=== PATIENT | female | born 1945 | race Caucasian/White ===

== ENCOUNTER 2017-07-31 21:38 | Observation (INO) | payer MEDICARE, BC ==
--- NOTE | 2017-07-31 22:24 | RAD ---
EXAM DESCRIPTION: Chest,1 View CLINICAL HISTORY:72 years Female, generalized weakness Comparison: None FINDINGS: No focal lung consolidation. No pleural effusion. No pneumothorax. Cardiac and mediastinal silhouette is unremarkable. No acute osseous abnormality. Soft tissues are unremarkable. IMPRESSION: No acute findings. No focal lung consolidation. Electronically signed by: Larry Quinteros MD 07/31/2017 10:23 PM CDT
[2017-07-31] MEDS ORDERED: SODIUM CHLORIDE 0.9% 1000ML 1,000 ML IVS ONE (22:41)
[2017-07-31] MEDS ORDERED: cefTRIAXone SODIUM 1 GM in SODIUM CHL 0.9% 50ML MIN-BAG+ 50 ML IVPB ONE (22:55)
[2017-07-31] MEDS ORDERED: MAGNESIUM SULFATE PREMIX 2GM 2 GM in PREMIX BAG 1 BAG IVPB ONE (22:55)
--- NOTE | 2017-07-31 23:02 | ED.PDOC ---
History of Present Illness - General Chief Complaint: General Stated Complaint: weakness, achy 2 weeks Time Seen by Provider: 07/31/17 21:49 Source: patient Exam Limitations: no limitations - History of Present Illness Initial Comments: the patient is a 72-year-old female presenting to the emergency room after a fall at home where she says she just felt weak and fell and was unable to get up. She is not really feeling dizzy. She did not hurt herself with a fall. She reports that over the last 2 weeks she has been getting progressively weaker. She is significantly overweight. She does help take care of her elderly mother. She does obviously have some very significant depression that is not being treated. She is still positive on vital signs here. She only takes a diuretic and a blood pressure pill. No strokelike symptoms. No headache. No shortness of breath. No chest pain. She does appear significantly deconditioned. Timing/Duration: unsure Severity: moderate Improving Factors: nothing Worsening Factors: nothing Associated Symptoms: weakness Allergies/Adverse Reactions: Allergies Codeine Adverse Reaction (Verified 07/31/17 21:52) Home Medications: Ambulatory Orders Carvedilol [Coreg] 6.25 mg PO BID 07/31/17 Hctz 25 mg/Triamterene 37.5 mg [Dyazide-25] 1 ea PO BID 07/31/17 Review of Systems - Review of Systems Constitutional: States: malaise, weakness - generalized but no focal EENTM: States: no symptoms reported Respiratory: States: short of breath - ith exertion primarily Cardiology: States: no symptoms reported Gastrointestinal/Abdominal: States: no symptoms reported Genitourinary: States: no symptoms reported Musculoskeletal: States: no symptoms reported Skin: States: no symptoms reported Neurological: States: anxiety, depressed Endocrine: States: no symptoms reported All other Systems: No Change from Baseline Past Medical History (General) - Patient Medical History Hx Congestive Heart Failure: No Hx Hypertension: Yes Hx Diabetes: No - Vaccination History Hx Influenza Vaccination: Yes Hx Pneumococcal Vaccination: Yes - Female History Patient is a Female of Child Bearing Age (10 -59 yrs old): No - Triage Comment ED Triage Comment: Feeling weak, shaky for 2 weeks, taking tylenol for aches and shakiness for past 2 weeks Family Medical History - Family History Father Family History: Unknown Physical Exam - Physical Exam General Appearance: Alert, Anxious Ears, Nose, Throat: hearing grossly normal, normal ENT inspection, normal pharynx Neck: full range of motion, supple Respiratory: lungs clear, normal breath sounds, no respiratory distress, no accessory muscle use Cardiovascular/Chest: normal peripheral pulses, regular rate, rhythm, no edema Peripheral Pulses: radial,right: 2+, radial,left: 2+, dorsalis pedis,right: 2+, dorsalis pedis,left: 2+ Gastrointestinal/Abdominal: non tender, soft Rectal Exam: deferred Back Exam: no CVA tenderness, no vertebral tenderness - obese Extremity: normal range of motion, non-tender, normal inspection, no pedal edema , normal capillary refill Neurologic: conductor sleeping car II-XII nml as tested, alert, oriented x 3, other - the patient' s strength does appear to be preserved, gross motor exam however she does havesome weakness when it comes to bearing her full weight. She is markedly depressed Skin Exam: normal color Comments: Vital Signs - 24 hr 07/31/17 07/31/17 07/31/17 21:48 21:54 22:45 Temperature 98.6 F Pulse Rate [ 94 H 94 H 83 Right] Respiratory 18 Rate Blood Pressure 130/83 112/73 [Left Radial Artery] O2 Sat by Pulse 95 Oximetry 07/31/17 07/31/17 22:46 22:47 Temperature Pulse Rate [ 103 H 111 H Right] Respiratory Rate Blood Pressure 114/84 113/49 [Left Radial Artery] O2 Sat by Pulse Oximetry Progress - Progress Progress: 07/31/17 23:03 the patient is a 72-year-old female presenting to the emergency room after a fall and progressive weakness over the last couple of weeks. The patient does have significant orthostasis that appears to be due to dehydration likely from her diuretic. The patient is receiving a fluid bolus. Initially she does have a urinary tract infection and is receiving a dose of Rocephin. She also has hypomagnesemia and is receiving a dose of this as well. The patient obviously has significant depression that will need to be treated in the long run. Additionally her white blood cell count differential does raise the possibility of a early blood dyscrasia. This may warrant a peripheral blood smear at a later date once her infection is cleared. Admit for further management. She may need physical therapy in the near future. - Results/Orders Results/Orders: Abnormal Lab Results 07/31/17 07/31/17 07/31/17 22:08 22:08 22:21 WBC 10.9 H RDW 15.3 H Band Neutrophils 4.0 H Metamyelocytes 4.0 H Sodium 134 L Chloride 98 L BUN 21 H BUN/Creatinine Ratio 25.6 H Random Glucose 120 H Serum Osmolality 272.4 L Magnesium 1.7 L Creatine Kinase 16 L B-Natriuretic Peptide 148.0 H Albumin 2.6 L Globulin 4.3 H Albumin/Globulin Ratio 0.6 L Urine Blood Moderate H Urine Nitrite Positive H Ur Leukocyte Esterase Small H Urine RBC 5-10 H Urine WBC 20-30 H Urine Bacteria 4+ H Laboratory Tests 07/31/17 07/31/17 07/31/17 22:08 22:08 22:08 WBC 10.9 H RBC 4.57 Hgb 13.0 Hct 39.4 MCV 86.1 MCH 28.4 MCHC 33.0 RDW 15.3 H Plt Count 279 MPV 7.8 Absolute Neuts (auto) Not Reportable Absolute Lymphs (auto) Not Reportable Absolute Monos (auto) Not Reportable Absolute Eos (auto) Not Reportable Neutrophils % Not Reportable Neutrophils % (Manual) 70.0 Lymphocytes % Not Reportable Lymphocytes % (Manual) 20.0 Monocytes % Not Reportable Monocytes % (Manual) 2.0 Eosinophils % Not Reportable Basophils % Not Reportable Band Neutrophils 4.0 H Metamyelocytes 4.0 H Platelet Estimate Normal Anisocytosis 1+ Sodium 134 L Potassium 4.0 Chloride 98 L Carbon Dioxide 27 Anion Gap 13.0 BUN 21 H Creatinine 0.82 BUN/Creatinine Ratio 25.6 H Random Glucose 120 H Serum Osmolality 272.4 L Lactic Acid 0.8 Calcium 9.5 Magnesium 1.7 L Total Bilirubin 0.5 AST 16 ALT 28 Alkaline Phosphatase 84 Creatine Kinase 16 L CK-MB (CK-2) 1.2 CK-MB (CK-2) % Not Reportable Troponin I 0.02 B-Natriuretic Peptide 148.0 H Serum Total Protein 6.9 Albumin 2.6 L Globulin 4.3 H Albumin/Globulin Ratio 0.6 L Urine Color Urine Appearance Urine pH Ur Specific [place] Urine Protein Urine Glucose (UA) Urine Ketones Urine Blood Urine Nitrite Urine Bilirubin Urine Urobilinogen Ur Leukocyte Esterase Urine RBC Urine WBC Ur Epithelial Cells Urine Bacteria 07/31/17 22:21 WBC RBC Hgb Hct MCV MCH MCHC RDW Plt Count MPV Absolute Neuts (auto) Absolute Lymphs (auto) Absolute Monos (auto) Absolute Eos (auto) Neutrophils % Neutrophils % (Manual) Lymphocytes % Lymphocytes % (Manual) Monocytes % Monocytes % (Manual) Eosinophils % Basophils % Band Neutrophils Metamyelocytes Platelet Estimate Anisocytosis Sodium Potassium Chloride Carbon Dioxide Anion Gap BUN Creatinine BUN/Creatinine Ratio Random Glucose Serum Osmolality Lactic Acid Calcium Magnesium Total Bilirubin AST ALT Alkaline Phosphatase Creatine Kinase CK-MB (CK-2) CK-MB (CK-2) % Troponin I B-Natriuretic Peptide Serum Total Protein Albumin Globulin Albumin/Globulin Ratio Urine Color Yellow Urine Appearance Sl cloudy Urine pH 6.0 Ur Specific [place] 1.015 Urine Protein Trace Urine Glucose (UA) Negative Urine Ketones Negative Urine Blood Moderate H Urine Nitrite Positive H Urine Bilirubin Negative Urine Urobilinogen 0.2 Ur Leukocyte Esterase Small H Urine RBC 5-10 H Urine WBC 20-30 H Ur Epithelial Cells 0 Urine Bacteria 4+ H EKG shows normal sinus rhythm. No acute ST segment changes concerning for ischemia. Departure - Departure Clinical Impression: Orthostasis, Dehydration, Cystitis, Hypomagnesemia, Inability to perform activities of daily living Disposition: Admit Patient Home Medications: Ambulatory Orders Carvedilol [Coreg] 6.25 mg PO BID 07/31/17 Hctz 25 mg/Triamterene 37.5 mg [Dyazide-25] 1 ea PO BID 07/31/17 Decision To Admit - Decistion To Admit Decision to Admit Reason: Medical Nature Decision to Admit Date: 07/31/17 Decision to Admit Time: 23:05
[2017-07-31] MEDS ORDERED: cefTRIAXone SODIUM 1 GM VIAL ONE (23:07)
[2017-07-31] MEDS ORDERED: SODIUM CHL 0.9% 50ML MIN-BAG+ 50 ML IVPB ONE (23:07)
[2017-07-31] MEDS ORDERED: MAGNESIUM SULFATE PREMIX 2GM 50 ML IVPB ONE (23:07)
[2017-07-31] MEDS ORDERED: ACETAMINOPHEN 325 MG TAB PO ONE (23:49)
--- NOTE | 2017-07-31 23:53 | HP ---
SUPERVISING PHYSICIAN: Navjot Rich M.D. CHIEF COMPLAINT: Weakness and near syncopal episode. HISTORY OF PRESENT ILLNESS: This is a 72 year-old female patient who usually lives in [place], [place], but she has been staying here in [place] taking care of her elderly mother. Her elderly mother has had many health complications over the last few months. About 2 weeks ago she started feeling achy all over. She would wake up at night with difficulty sleeping. She has had some chills at some point but she did not feel like she had had any fever. On Monday, she felt better than she had the previous 2 weeks, but then Monday she really felt poorly. She forgot that Monday was so she called her primary care physician, Dr. Toribio. Because Dr. Toribio's office was not open, she initially was going to wait until today to call him, but she tried to get up and she had a very difficult time ambulating. In fact, she sort of fell against the wall and she was so weak she had a weak episode where she fell against the wall and she slid to the floor. She could not get up, so she ended up calling 911. She presented to the Emergency Room and in the Emergency Room she had orthostatic hypotension. She was given some fluids. Lab was drawn. WBCs were elevated at 10.9 and she had 4% bands. Sodium 134, potassium 4, chloride 98, BUN 21, creatinine 0.82, glucose 120, serum osmolality 272.4, magnesium 1.7. BNP was 148. TSH 1.04. Urinalysis was positive for a urinary tract infection. She had moderate urine blood, positive urine nitrites, small amount of leukocyte esterase, 5 to 10 urine RBCs, 20 to 30 urine WBCs and 4+ urine bacteria. Urine culture was done and she was started on Rocephin. Her initial pulse rate was 90s to 100s. After she received fluids, she dropped to the 80s. Her blood pressure normalized out to the 110s. I was called for admission to the hospital. PAST MEDICAL HISTORY: 1. Hypertension. 2. Osteoarthritis. 3. Obesity. PAST SURGICAL HISTORY: 1. Colon resection. 2. section times three. 3. Hysterectomy. OUTPATIENT MEDICATIONS: Per the EMR and awaiting verification. ALLERGIES: CODEINE SULFATE. SOCIAL HISTORY: She has been living in [place] for the past several months but normally lives in [place]. She has been taking care of her elderly mother. She has 3 children. She denies any tobacco use. She drinks alcohol very infrequently. Denies any illicit drug use. REVIEW OF SYSTEMS: GENERAL: Positive for fatigue. Negative for fever or weight changes. HEENT: Negative for sinus symptoms, ear pain, vision changes or sore throat. RESPIRATORY: Positive for mild dyspnea with exertion. Negative for coughing or wheezing. CARDIAC: Negative for chest pain, palpitations, tachycardia. GASTROINTESTINAL: Negative for nausea, vomiting, diarrhea or constipation. GENITOURINARY: Negative for hematuria, dysuria or polyuria. MUSCULOSKELETAL: Negative for back pain, arthralgias or myalgias. NEUROLOGIC: Positive for anxiety and depression as well as weakness and dizziness. Negative for seizures or headache. PHYSICAL EXAMINATION: VITAL SIGNS: Temperature 97.6, pulse rate 90, blood pressure 121/75, respiratory rate 20, O2 sat 94% on room air. GENERAL: This is a 72 year-old obese female lying in her hospital bed. She is tearful but she is in no acute distress. HEENT: Normocephalic and atraumatic. Pupils are equal and reactive. Oropharynx is clear. NECK: Supple without mass. There is no discernible jugular venous distention. RESPIRATORY: Diminished at the bases but essentially clear to auscultation. CHEST: There is equal rise and fall of the chest with inspiration and expiration. CARDIOVASCULAR: Regular rate and rhythm. GASTROINTESTINAL: Abdomen is soft, nondistended, non-tender. Bowel sounds are positive. EXTREMITIES: No cyanosis, clubbing or edema. NEUROLOGIC: She is awake, alert and oriented times three but very tearful and depressed. LABORATORY: Subsequent labs after fluids and antibiotics reveal a WBC of 10.1, hemoglobin 12.8, hematocrit 38.4, neutrophils 78.4. Sodium 137, potassium 3.6, chloride 104, carbon dioxide 24, BUN 17, creatinine 0.69, glucose 127. Serum osmolality 276.9. Liver enzymes were within normal limits. Chest x-ray showed no acute findings with no focal lung consolidations. All other labs and films have been reviewed via the EMR. ASSESSMENT: 1. Urinary tract infection. 2. Dehydration most likely contributed by #1. 3. Weakness with a near syncopal episode. 4. Severe depression. 5. Hypertension. PLAN: We will place the patient in Observation. I will recheck her BNP in the morning. I will start her on Prozac. I have also gotten a PT consultation for this afternoon. Most likely she has overextended herself with the care of her elderly mother and according to family members she is very fatigued. We have discussed at length her possibly going to a rehab facility to get her strength back up as she is having a very difficult time getting around in her room. Will continue to monitor her closely and follow as needed. Dr. Rich is the collaborating physician available for consultation. #[id number] [facility]
[2017-08-01] MEDS ORDERED: SODIUM CHLORIDE 0.9% (FLUSH) 10 ML SYG IV PRN (00:14)
[2017-08-01] MEDS ORDERED: SODIUM CHLORIDE 0.9% 1000ML 1,000 ML IVS PRN (00:15)
[2017-08-01] MEDS ORDERED: IV SET AND CAP CHANGE INJ INJ SCH (00:30)
[2017-08-01] MEDS ORDERED: PANTOPRAZOLE SODIUM IV 40 MG VIAL IV SCH (00:30)
[2017-08-01] MEDS: ACETAMINOPHEN 325 MG TAB PO PRN ×2 (06:22→18:44)
[2017-08-01] MEDS: CARVEDILOL 3.125 MG TAB PO SCH ×2 (08:34→21:15)
[2017-08-01] MEDS: ALPRAZolam 0.25 MG TAB PO PRN ×2 (12:56→22:57)
[2017-08-01] MEDS: ENOXAPARIN SODIUM 40 MG/0.4 ML SYG SUBCU SCH (12:56)
[2017-08-01] MEDS: FLUoxetine HCL 20 MG CAP PO SCH (12:56)
[2017-08-01] MEDS: SODIUM CHLORIDE 0.9% (FLUSH) 10 ML SYG IV SCH ×2 (13:00→21:17)
[2017-08-01] MEDS ORDERED: PANTOPRAZOLE SODIUM TAB 40 MG PO ONE (20:31)
[2017-08-01] MEDS ORDERED: SODIUM CHL 0.9% 50ML MIN-BAG+ 50 ML IVPB ONE (20:31)
[2017-08-01] MEDS ORDERED: cefTRIAXone SODIUM 1 GM VIAL ONE (20:32)
[2017-08-01] MEDS ORDERED: cefTRIAXone SODIUM 1 GM in SODIUM CHL 0.9% 50ML MIN-BAG+ 50 ML IVPB SCH (21:00)
[2017-08-02] MEDS: ACETAMINOPHEN 325 MG TAB PO PRN ×2 (04:35→14:59)
[2017-08-02] MEDS ORDERED: PANTOPRAZOLE SODIUM TAB 40 MG PO SCH (06:30)
[2017-08-02] MEDS: ENOXAPARIN SODIUM 40 MG/0.4 ML SYG SUBCU SCH (08:26)
[2017-08-02] MEDS: CARVEDILOL 3.125 MG TAB PO SCH (08:26)
[2017-08-02] MEDS: FLUoxetine HCL 20 MG CAP PO SCH (08:26)
[2017-08-02] MEDS: SODIUM CHLORIDE 0.9% (FLUSH) 10 ML SYG IV SCH (08:27)
[2017-08-02 10:07] VITALS: BP 137/83; TEMP 97.4
[2017-08-02 13:44] VITALS: O2SAT 91
--- NOTE | 2017-08-02 14:05 | DS ---
SUPERVISING PHYSICIAN: Navjot Rich MD DISCHARGE DIAGNOSIS: 1. Urinary tract infection. 2. Dehydration, most likely contributed by #1. 3. Weakness with a near syncopal episode. 4. Severe depression. 5. Hypertension. HISTORY OF PRESENT ILLNESS: This is a 72-year-old female patient who usually lives in [place], [place], but she has been staying here in [place] for several months taking care of her elderly mother. Her elderly mother has had many health complications over the last few months. About 2 weeks ago, she started feeling achy all over. She would wake up at night with difficulty sleeping. She also had some chills, but she did not feel like she had had any fever. On Monday, she felt better than she had the previous 2 weeks, but then Monday she felt poorly. She forgot that Monday was , so she called her primary care physician, Dr. Toribio. His office was not open, so she initially was going to wait until Monday, but after trying to get up, she had a very difficult time ambulating. In fact, she sort of fell against the wall and she was so weak she had an episode where she fell and she slid to the floor. She could not get up, so she ended up calling 911. She presented to the Emergency Room with orthostatic hypotension. She was given some fluids. Lab was drawn. WBCs were elevated at 10.9 and she had 4% bands. Sodium 134, potassium 4, chloride 98, BUN 21, creatinine 0.82, glucose 120, serum osmolality 272.4, magnesium 1.7. BNP was 148. TSH 1.04. Urinalysis was positive for a urinary tract infection. She had moderate urine blood, positive urine nitrites, small amount of leukocyte esterase, 5 to 10 urine RBCs, 20 to 30 urine WBCs and 4+ urine bacteria. Urine culture was done prior to antibiotics and she was started on Rocephin. Her initial pulse rate was 90s to 100s. After she received fluids, she dropped to the 80s. Her systolic blood pressure normalized out to the 110s. I was called for admission to the hospital. HOSPITAL COURSE: The patient was given fluids and continued on Rocephin. Her depression was treated. We initially started her on Prozac 20 mg daily. Her WBCs normalized to 9.5. Hemoglobin and hematocrit were 12.5 and 37.4. Neutrophils were 74% today. Electrolytes were basically within normal limits. It was felt that she most likely her problems resulted from over extension in her physical capabilities taking care of her mother. It was decided that due to her weakness that she would be transferred to a rehab facility. [facility] in [place] has accepted the patient and she will be discharged today to be admitted to that facility. DISCHARGE PLAN: The patient will be discharged home in stable condition. She will be transferred to [facility] in [place]. She is to continue her previous medications. I have given her prescriptions for cefdinir, Xanax and Prozac to be added to her routine medications. After discharge from [facility], she is to followup with her primary care physician, Dr. Toribio. She is to resume her previous diet and activity as per the rehab facility and physical therapy. DISCHARGE MEDICATIONS: 1. HCTZ/triamterene. 2. Carvedilol. 3. Acetaminophen. 4. Xanax. 5. Omnicef. 6. Prozac. Dr. Rich is the collaborating physician and available for consultation. #[id number] [facility]
== END 2017-08-02 15:15 ==
LOC: ER 21:38 → MS 23:51
PROVIDERS: ADMIT Nurse Practitioner Acute Care; ATTEND Nurse Practitioner Acute Care
DX: N39.0 Urinary tract infection, site not specified (principal); E86.0 Dehydration; E83.42 Hypomagnesemia; R53.1 Weakness; I95.1 Orthostatic hypotension; F32.9 Major depressive disorder, single episode, unspecified; I10 Essential (primary) hypertension; E66.9 Obesity, unspecified; Z79.899 Other long term (current) drug therapy; Z88.6 Allergy status to analgesic agent
CPT/HCPCS: 96372 ×2; 96375 ×2; 96376; J0696 ×2; J7030 ×2; J1650 ×2; J3475; J7050 ×2; 80048; 82553; 80053 ×2; 87086; 36415 ×3; 81001; 85025 ×3; 82550; 83735 ×2; 84100; 84443; 84484; 83880; 83605; 71045; 94760 ×8; 97530; G8978; G8979; 97162; 99285; 93005; G0378; 96365

== ENCOUNTER → 2017-12-07 | Outpatient (CLI) | payer MEDICARE, BC | LOC: GMAJS 14:26 | PROVIDERS: ATTEND Physician Assistant | DX: N30.00 Acute cystitis without hematuria (principal) ==

== ENCOUNTER → 2018-05-30 | Outpatient (CLI) | payer MEDICARE, BC | LOC: GMAE 14:51 | PROVIDERS: ATTEND Family Medicine | DX: I10 Essential (primary) hypertension (principal) ==

== ENCOUNTER → 2018-10-10 | Outpatient (CLI) | payer MEDICARE, BC | LOC: GMATM 17:24 | PROVIDERS: ATTEND Nurse Practitioner Family | DX: R06.02 Shortness of breath (principal); N30.00 Acute cystitis without hematuria ==

== ENCOUNTER → 2019-04-08 | Outpatient (CLI) | payer MEDICARE, BC ==
--- NOTE | 2019-04-08 10:13 | RAD ---
EXAM: Pelvis CLINICAL HISTORY: PAIN IN LEFT AND RIGHT HIP COMPARISON STUDY: None TECHNICAL: AP pelvis FINDINGS: There is a mild diffuse demineralization. The pelvic ring is intact and there is no identified fracture. Both hips are in anatomic alignment. There are mild degenerative changes of both hips without significant joint space loss or subchondral sclerosis. Both sacroiliac joints show mild to moderate osteoarthritic changes. Pelvic phleboliths are present. IMPRESSION: 1. Mild to moderate osteoarthritic changes of both sacroiliac joints. 2. Mild degenerative changes of both hips. Electronically signed by: Yosi Shay MD 04/08/2019 10:11 AM [facility]
--- NOTE | 2019-04-08 10:16 | RAD ---
EXAM: Knee,Right Complete CLINICAL HISTORY: PAIN IN RIGHT KNEE COMPARISON STUDY: None TECHNICAL: Standing AP, lateral, oblique and sunrise x-rays of the right knee. FINDINGS: There is severe joint space loss of the medial compartment. The cortex of the femur contacts the tibia. There is remodeling of the medial compartment. Subchondral sclerosis is mild. Periarticular osteophytes are present. There are moderate to severe osteoarthritic changes of the lateral compartment and patellofemoral joint. There is no fracture or dislocation. No large joint effusion. IMPRESSION: 1. Severe osteoarthritic changes of the right knee medial compartment. 2. Moderate to severe osteoarthritic changes of the lateral compartment and patellofemoral joint. Electronically signed by: Yosi Shay MD 04/08/2019 10:15 AM [facility]
--- NOTE | 2019-04-08 10:16 | RAD ---
EXAM: Knee,Left Complete CLINICAL HISTORY: PAIN IN LEFT KNEE COMPARISON STUDY: None TECHNICAL: Standing AP, lateral, oblique and sunrise x-rays of the left knee. FINDINGS: There is severe joint space loss of the medial compartment. The cortex of the femur contacts the tibia. There is remodeling of the medial compartment. Subchondral sclerosis is mild. Periarticular osteophytes are present. There are moderate to severe osteoarthritic changes of the lateral compartment and patellofemoral joint. There is no fracture or dislocation. No large joint effusion. IMPRESSION: 1. Severe osteoarthritic changes of the left knee medial compartment. 2. Moderate to severe osteoarthritic changes of the lateral compartment and patellofemoral joint. Electronically signed by: Yosi Shay MD 04/08/2019 10:14 AM [facility]
== END ==
LOC: RAD 08:02
PROVIDERS: ATTEND Orthopaedic Surgery
DX: M16.0 Bilateral primary osteoarthritis of hip (principal); M47.898 Other spondylosis, sacral and sacrococcygeal region; M17.11 Unilateral primary osteoarthritis, right knee; M17.12 Unilateral primary osteoarthritis, left knee

== ENCOUNTER 2020-03-16 11:27 | Emergency (ER) | payer MEDICARE, BC ==
--- NOTE | 2020-03-16 13:46 | RAD ---
EXAM DESCRIPTION: Chest,1 View CLINICAL HISTORY: 74 years Female, sob, cough COMPARISON: Previous chest x-ray July 31, 2017 TECHNIQUE: AP portable chest. FINDINGS: Heart size is large with centrally prominent pulmonary vascularity. Infiltrative changes in the lingula or left lower lobe. No pulmonary mass or worrisome nodule. No pneumothorax or pleural effusion. Bones are unremarkable. IMPRESSION: Large heart with centrally increased vascularity. Patchy infiltrate in the lingula or left lower lobe. Electronically signed by: Juventino Messina MD 03/16/2020 1:44 PM [facility]
[2020-03-16] MEDS ORDERED: ACETAMINOPHEN 325 MG TAB ONE (14:43)
--- NOTE | 2020-03-16 15:46 | ED.PDOC ---
History of Present Illness - General Chief Complaint: Respiratory Problem Stated Complaint: difficulty breathing Time Seen by Provider: 03/16/20 11:31 Source: patient Exam Limitations: no limitations - History of Present Illness Initial Comments: The [id number] female presented emergency room secondary to multiple symptoms. The patient has had a sore throat along with a mildly productive cough and mild increase shortness of breath for the last week. She is also had some mild nausea. Questionable urinary symptoms. She has had multiple urinary tract infections in the past week. Had a fever. She has not hypoxic. No chest pain. No syncope. Timing/Duration: 1 week Severity: moderate Improving Factors: nothing Worsening Factors: nothing Associated Symptoms: cough, fever/chills, loss of appetite, malaise, nausea/vomiting Allergies/Adverse Reactions: Allergies Codeine Adverse Reaction (Verified 03/16/20 13:31) Home Medications: Ambulatory Orders Carvedilol [Coreg] 6.25 mg PO BID 07/31/17 Hctz 25 mg/Triamterene 37.5 mg [Dyazide-25] 1 ea PO BID 07/31/17 Acetaminophen [Tylenol] 950 mg PO PRN PRN 08/01/17 ALPRAZolam [Xanax] 0.25 mg PO Q6H PRN #20 tab 08/02/17 Cefdinir [Omnicef] 300 mg PO BID #20 cap 08/02/17 Fluoxetine HCl [Prozac] 20 mg PO DAILY #30 cap 08/02/17 Amoxicillin & Pot Clavulanate [Augmentin Tab] 875 mg PO BID #20 tab 03/16/20 Review of Systems - Review of Systems Constitutional: States: fever, malaise EENTM: States: throat pain Respiratory: States: cough, short of breath Cardiology: States: no symptoms reported Gastrointestinal/Abdominal: States: nausea Genitourinary: States: no symptoms reported Musculoskeletal: States: other - Body aches Skin: States: no symptoms reported Neurological: States: no symptoms reported Endocrine: States: no symptoms reported All other Systems: No Change from Baseline Past Medical History (General) - Patient Medical History Hx Seizures: No Hx Stroke: No Hx Asthma: No Hx of COPD: No Hx Congestive Heart Failure: No Hx Pacemaker: No Hx Hypertension: Yes Hx Diabetes: No Hx MRSA: No - Vaccination History Hx Influenza Vaccination: Yes Hx Pneumococcal Vaccination: Yes - Social History Hx Alcohol Use: No Hx Substance Use: No Hx Physical Abuse: No Hx Emotional Abuse: No Family Medical History - Family History Father Family History: Unknown Age at (years of age): 70 Hx Family Cancer: Yes - blood cancer Mother Living Status: Still Living Hx Family Hypertension: Yes Hx Cardiac Disease: Yes - pacemaker, triple bypass Hx Family Cancer: Yes - bladder cancer Physical Exam - Physical Exam General Appearance: Alert, No apparent distress Eye Exam: bilateral normal Ears, Nose, Throat: hearing grossly normal, pharyngeal erythema Neck: full range of motion, supple Respiratory: no respiratory distress, no accessory muscle use, rhonchi Cardiovascular/Chest: normal peripheral pulses, regular rate, rhythm, no edema Peripheral Pulses: radial,right: 2+, radial,left: 2+ Gastrointestinal/Abdominal: non tender - Morbidly obese, soft Rectal Exam: deferred Back Exam: no CVA tenderness, no vertebral tenderness Extremity: normal range of motion, non-tender, normal inspection, no pedal edema, normal capillary refill Neurologic: cco II-XII nml as tested, alert, normal mood/affect, oriented x 3 Skin Exam: normal color Comments: Vital Signs - 8 hr 03/16/20 13:00 Temperature 99.0 F Pulse Rate 94 H Pulse Rate [ 94 H pulse ox] Respiratory 20 Rate Blood Pressure 108/77 [Left Arm] O2 Sat by Pulse 91 L Oximetry Progress - Progress Progress: 03/16/20 15:46 The patient is a 74-year-old female presented emergency room with multiple problems. The patient appears to have strep throat, a left lingular pneumonia and a small urinary tract infection. She is going to be treated for both with Augmentin. She needs to increase her fluid intake over the next few days. She needs to maintain a bland diet. ER warnings are given for any significant worsening. Follow-up with primary care doctor next week. No evidence of any hypoxia at this time. She did test negative for coronavirus today. lacey светлана [id number] 03/16/20 15:47 - Results/Orders Results/Orders: Rapid Covid is negative. Chest x-ray shows left lingular versus left lower lobe infiltrate. EKG shows normal sinus rhythm at 88 bpm. Normal axis. Normal R wave progression. No definitive ST segment or T wave changes indicative of acute ischemia. Normal QT interval. Laboratory Tests 03/16/20 03/16/20 03/16/20 13:25 13:25 13:25 WBC 5.5 RBC 4.88 Hgb 13.2 Hct 40.7 MCV 83.5 MCH 27.1 MCHC 32.4 L RDW 15.1 H Plt Count 200 MPV 9.1 Absolute Neuts (auto) 3.40 Absolute Lymphs (auto) 1.50 Absolute Monos (auto) 0.50 Absolute Eos (auto) 0.00 Absolute Basos (auto) 0.00 Neutrophils % 62.4 Lymphocytes % 27.7 Monocytes % 8.8 Eosinophils % 0.5 L Basophils % 0.6 PT INR PTT (SP) D-Dimer, Quantitative Fibrinogen Sodium 137 Potassium 4.0 Chloride 102 Carbon Dioxide 25 Anion Gap 14.0 BUN 16 Creatinine 0.65 BUN/Creatinine Ratio 24.6 H Random Glucose 121 H Serum Osmolality 276.3 Lactic Acid 0.8 Calcium 8.5 Magnesium 1.6 L Total Bilirubin 0.7 AST 29 ALT 20 Alkaline Phosphatase 67 Creatine Kinase 26 Ferritin B-Natriuretic Peptide 36.3 Serum Total Protein 7.4 Albumin 3.7 Globulin 3.7 H Albumin/Globulin Ratio 1.0 L LD Total CK-MB (CK-2) 0.4 Troponin I < 0.02 C-Reactive Protein TSH 1.49 Urine Color Urine Appearance Urine pH Ur Specific [place] Urine Protein Urine Glucose (UA) Urine Ketones Urine Blood Urine Nitrite Urine Bilirubin Urine Urobilinogen Ur Leukocyte Esterase Urine RBC Urine WBC Ur Epithelial Cells Urine Bacteria Group A Strep Rapid 03/16/20 03/16/20 03/16/20 13:25 13:25 13:25 WBC RBC Hgb Hct MCV MCH MCHC RDW Plt Count MPV Absolute Neuts (auto) Absolute Lymphs (auto) Absolute Monos (auto) Absolute Eos (auto) Absolute Basos (auto) Neutrophils % Lymphocytes % Monocytes % Eosinophils % Basophils % PT 10.7 INR 1.08 PTT (SP) 31.2 D-Dimer, Quantitative 331.0 Fibrinogen 450 H Sodium Potassium Chloride Carbon Dioxide Anion Gap BUN Creatinine BUN/Creatinine Ratio Random Glucose Serum Osmolality Lactic Acid Calcium Magnesium Total Bilirubin AST ALT Alkaline Phosphatase Creatine Kinase Ferritin 290.4 B-Natriuretic Peptide Serum Total Protein Albumin Globulin Albumin/Globulin Ratio LD Total 150 CK-MB (CK-2) Troponin I C-Reactive Protein 3.7 H TSH Urine Color Urine Appearance Urine pH Ur Specific [place] Urine Protein Urine Glucose (UA) Urine Ketones Urine Blood Urine Nitrite Urine Bilirubin Urine Urobilinogen Ur Leukocyte Esterase Urine RBC Urine WBC Ur Epithelial Cells Urine Bacteria Group A Strep Rapid 03/16/20 03/16/20 13:50 15:05 WBC RBC Hgb Hct MCV MCH MCHC RDW Plt Count MPV Absolute Neuts (auto) Absolute Lymphs (auto) Absolute Monos (auto) Absolute Eos (auto) Absolute Basos (auto) Neutrophils % Lymphocytes % Monocytes % Eosinophils % Basophils % PT INR PTT (SP) D-Dimer, Quantitative Fibrinogen Sodium Potassium Chloride Carbon Dioxide Anion Gap BUN Creatinine BUN/Creatinine Ratio Random Glucose Serum Osmolality Lactic Acid Calcium Magnesium Total Bilirubin AST ALT Alkaline Phosphatase Creatine Kinase Ferritin B-Natriuretic Peptide Serum Total Protein Albumin Globulin Albumin/Globulin Ratio LD Total CK-MB (CK-2) Troponin I C-Reactive Protein TSH Urine Color Yellow Urine Appearance Cloudy Urine pH 6.5 Ur Specific [place] 1.020 Urine Protein 30 Urine Glucose (UA) Negative Urine Ketones Negative Urine Blood Trace-lysed H Urine Nitrite Positive H Urine Bilirubin Negative Urine Urobilinogen 0.2 Ur Leukocyte Esterase Small H Urine RBC 5-10 H Urine WBC 10-20 H Ur Epithelial Cells 0-1 Urine Bacteria 4+ H Group A Strep Rapid Positive H Departure - Departure Clinical Impression: Lingular pneumonia, Strep throat Urinary tract infection Qualifiers: Urinary tract infection type: acute cystitis Hematuria presence: without hematuria Qualified Code(s): N30.00 - Acute cystitis without hematuria Disposition: Discharge to Home or Self Care Condition: Fair Departure Forms: ED Discharge - Pt. Copy, Patient Portal Self Enrollment Instructions: Pneumonia in Adults Diet: regular diet Activity: increase activity as tolerated Referrals: RAUL CONROY MD [Primary Care Provider] - 1-2 Weeks Prescriptions: Amoxicillin & Pot Clavulanate [Augmentin Tab] 875 mg PO BID #20 tab Home Medications: Ambulatory Orders Carvedilol [Coreg] 6.25 mg PO BID 07/31/17 Hctz 25 mg/Triamterene 37.5 mg [Dyazide-25] 1 ea PO BID 07/31/17 Acetaminophen [Tylenol] 950 mg PO PRN PRN 08/01/17 ALPRAZolam [Xanax] 0.25 mg PO Q6H PRN #20 tab 08/02/17 Cefdinir [Omnicef] 300 mg PO BID #20 cap 08/02/17 Fluoxetine HCl [Prozac] 20 mg PO DAILY #30 cap 08/02/17 Amoxicillin & Pot Clavulanate [Augmentin Tab] 875 mg PO BID #20 tab 03/16/20 Additional Instructions: The patient is a 74-year-old female presented emergency room with multiple problems. The patient appears to have strep throat, a left lingular pneumonia and a small urinary tract infection. She is going to be treated for both with Augmentin. She needs to increase her fluid intake over the next few days. She needs to maintain a bland diet. ER warnings are given for any significant worsening. Follow-up with primary care doctor next week. No evidence of any hypoxia at this time. She did test negative for coronavirus today.
[2020-03-16] MEDS ORDERED: AMOXICILLIN & POT CLAVULANATE 875 MG TAB PO ONE (15:49)
[2020-03-16 16:31] VITALS: BP 170/110; TEMP 98; O2SAT 98
== END 2020-03-16 16:06 | disposition home or self-care (01) ==
LOC: ER 11:27
DX: J02.0 Streptococcal pharyngitis (principal); J18.9 Pneumonia, unspecified organism; N30.00 Acute cystitis without hematuria; I10 Essential (primary) hypertension; Z20.822 Contact with and (suspected) exposure to COVID-19; Z79.899 Other long term (current) drug therapy; Z88.5 Allergy status to narcotic agent